=== PATIENT | male | born 1965 | race Caucasian/White ===

== ENCOUNTER 2020-01-20 00:45 | Emergency (ER) | payer MEDICAID ==
[2020-01-20] MEDS ORDERED: HYDROmorphone 1 MG/ML Syringe IM ONE (01:02)
[2020-01-20] MEDS: HYDROmorphone 1 MG/ML Syringe IM ONE ×2 (01:10→01:12)
[2020-01-20] MEDS ORDERED: Sodium Chloride 0.9% 10 ML Syringe FLUSH PRN (01:19)
--- NOTE | 2020-01-20 01:22 | EDM.PDOC ---
ED HPI GENERAL MEDICAL PROBLEM - General Chief Complaint: Upper Extremity Injury/Pain Stated Complaint: FAll, right arm injury, deformity Time Seen by Provider: 01/20/20 00:45 Source of Information: Reports: Patient History Limitations: Reports: No Limitations - History of Present Illness INITIAL COMMENTS - FREE TEXT/NARRATIVE: Patient comes emergency department today with an injury to the right wrist. This patient just prior to arrival was at home when he was walking he stepped in his dogtripped and fell forward on an outstretched flexed right wrist. He has no other injury other than to his right wrist. He does complain of paresthesias to the entire hand all the way up to the wrist on the medial aspect. He is unable to flex the wrist due to pain. He is able to move the fingers appropriately. right wrist Pain Score (Numeric/FACES): 3 - Related Data Allergies Allergy/AdvReac Type Severity Reaction Status Date / Time No Known Allergies Allergy Verified 01/20/20 01:08 Home Meds: Home Meds Hydrocodone/Acetaminophen [Hydrocodon-Acetaminophen 5-325] 1 each PO Q4H PRN #20 tablet 01/20/20 [Rx] Review of Systems - Review of Systems Review Of Systems: Comprehensive ROS is negative, except as noted in HPI. ED EXAM, GENERAL - Physical Exam Exam: See Below Exam Limited By: No Limitations General Appearance: Alert, WD/WN, No Apparent Distress Respiratory/Chest: No Respiratory Distress Cardiovascular: Normal Peripheral Pulses Peripheral Pulses: 2+: Brachial (L), Brachial (R), Radial (L), Radial (R) Extremities: Normal Capillary Refill. No: Normal Inspection (Examination of the right wrist. There is clearly some bony deformity primarily anteriorly displacement and I question some impaction of the wrist due to the shortening of the wrist. There is no break in the skin. He is able to flex and extend all the joints of the finger to include the DIP PIP IP and MCP joints. He does have normal tactile sensation on the hand but he does complain of paresthesias to the hand as well as the lateral aspect of the forearm.) Neurological: Alert, Oriented, No Motor/Sensory Deficits Psychiatric: Normal Affect, Normal Mood Skin Exam: Warm, Dry, Intact, Normal Color ED TRAUMA EXTREMITY PROCEDURES - Joint Reduction Right Wrist Sedation: Conscious Sedation (With propofol by CONSUMER SERVICES ADVISOR) Pre-Procedure NV Status: Abnormal (Paresthesias as documented) Post-Procedure NV Status: Normal Technique: Traction/Counter Traction (As well as the use of finger traps) Number of Attempts: 1 Post-Reduction Imaging: Completely Reduced Joint Reduction Complications: No - Splinting Right Upper Extremity Splint Site: Right wrist Pre-Procedure NV Status: Normal Post-Procedure NV Status: Normal Splint Material: Fiberglass Splint Design: Sugar Tong Applied & Form Fitted By: Provider Provider Post-Splint Application NV Check: NV Status Normal, Good Position Complications: No Progress/Comments: The paresthesia of the hand and arm has resolved after reduction. Course - Vital Signs Last Recorded V/S: Last Vital Signs Temp 99 F 01/20/20 00:45 Pulse 94 01/20/20 00:45 Resp 16 01/20/20 00:45 BP 151/104 H 01/20/20 00:45 Pulse Ox 95 01/20/20 00:45 - Orders/Labs/Meds Orders: Active Orders 24 hr Category Date Time Status DME for Discharge [COMM] Urgent Oth 01/20/20 03:15 Ordered Peripheral IV Insertion Adult [OM.PC] Stat Oth 01/20/20 01:19 Ordered Meds: Medications Discontinued Medications Generic Name Dose Route Start Last Admin Trade Name Freq PRN Reason Stop Dose Admin Hydrocodone Bitart/Acetaminophen 1 packet 01/20/20 02:53 01/20/20 03:20 Take Home: Acetam/Hydrocodon 325-5 Mg, 5 Pack PO 01/20/20 02:54 1 packet ONETIME ONE Administration Hydrocodone Bitart/Acetaminophen 1 tab 01/20/20 03:02 [place] 325-5 Mg PO Q4H PRN Pain Hydromorphone HCl 1 mg 01/20/20 01:02 Dilaudid IM 01/20/20 01:03 ONETIME ONE Hydromorphone HCl 2 mg 01/20/20 01:06 01/20/20 01:10 Dilaudid IM 01/20/20 01:07 Not Given ONETIME ONE Hydromorphone HCl 1 mg 01/20/20 01:19 01/20/20 01:30 Dilaudid IVPUSH 01/20/20 01:20 1 mg ONETIME ONE Administration Propofol Confirm 01/20/20 02:08 Diprivan 50 Ml Administered 01/20/20 02:09 Dose 50 mls @ as directed .ROUTE .STK-MED ONE Sodium Chloride 10 ml 01/20/20 01:19 Saline Flush FLUSH ASDIRECTED PRN Keep Vein Open - Radiology Interpretation Free Text/Narrative:: X-ray of the right wrist per radiology shows a comminuted distal radius intra- articular fracture with posterior displacement of the distal fragments. There is also avulsion and dorsal displacement of the ulnar styloid. Although when I review this x-ray the ulnar styloid is rather rounded and I wonder if this is not somewhat of an old fracture. After deep sedation by anesthesia and reduction x-ray per radiology shows a satisfactory post reduction of the comminuted distal radius fracture. Fracture is in satisfactory alignment. Radiologist did note at this time that the ulnar styloid avulsion may be due to old trauma considering the cortication of the styloid fragment. - Re-Assessments/Exams Free Text/Narrative Re-Assessment/Exam: Initially the patient was given 1 mg of Dilaudid IV push. X-ray of the right wrist shows a comminuted distal radius Colles' type fracture. I did review the xray with DR. Delvalle the hand surgeon assessment nurse practitioner at [facility] with my concerns of the parathesias to the hand. He recommends reduction at this time and post reduction evaluation of the parathesia. I reviewed in length with the patient the Colles' type fracture that he has on his distal radius. With the rather large amount of displacement and impaction of the wrist reduction needs to be completed tonight. I did offer the patient either transfer reduction by myself. He is comfortable with myself reducing that his wrist. He is understanding that this is just a temporary process to get his bones close to realignment but he will still need surgery for this comminuted distal fracture. After the review of risk and benefits to include deep sedation by the CONSUMER SERVICES ADVISOR closed reduction of the right distal comminuted radius fracture written and verbal consent was obtained from the patient. The patient was prepared for deep sedation by the CONSUMER SERVICES ADVISOR to include continuous oximetry continuous end-tidal CO2 regular blood pressure monitor readings. Resuscitation equipment was available at the bedside. Please see the CONSUMER SERVICES ADVISOR notes for the documentation of moderate sedation. After a timeout was completed and verification of the patient and site the patient was placed under sedation by the CONSUMER SERVICES ADVISOR. After good sedation was verified the patient's hand was placed in a fingertrap set with weights at the anatomical position of the right angle of the elbow were placed to help with the reduction. Under satisfactorily identifying that the disimpaction had improved visually as well by palpation I then turned to manual traction and countertraction for reduction of the distal radius head. Which was done with manual manipulation. Postreduction x-rays initially reviewed extemporaneously by myself shows satisfactory realignment of the very displaced distal fragments of the radius. The patient was then placed in a well-padded sugar tong splint to the right hand in the position of anatomical neutral. He had good CMS following the application of the sugar tong splint. Patient awoke from sedation without complication please see the CONSUMER SERVICES ADVISOR's documentation of the sedation. The paresthesias have resolved of the right hand. Otherwise CMS is appropriate to the right hand. Patient does not recall the reduction of the wrist. He tolerated the anesthesia well. He was placed in a bucket sling. Discharge instructions were explained to the patient he is comfortable with this plan. He is understanding that he needs to see hand surgery this week for plan for surgery for this comminuted distal radius fracture. Departure - Departure Time of Disposition: 02:52 Disposition: Home, Self-Care 01 Clinical Impression: Closed fracture of radius Qualifiers: Encounter type: initial encounter Radius location: distal Fracture morphology: Colles' Laterality: right Qualified Code(s): S52.531A - Colles' fracture of right radius, initial encounter for closed fracture - Discharge Information Prescriptions: Hydrocodone/Acetaminophen [Hydrocodon-Acetaminophen 5-325] 1 each PO Q4H PRN #20 tablet PRN Reason: Pain Instructions: Cast or Splint Care, Adult, [id number], Closed Reduction for Wrist or Forearm, Care After, Pain Medicine Instructions, [id number] Referrals: PCP,Unobtain [Primary Care Provider] - Forms: ED Department Discharge Additional Instructions: Tylenol as needed for pain. Use Ibuprofen type medication sparingly. RICE therapy. ICE to the wrist as much as possible over the next 3-5 days. DO not get the splint wet. IN sling at all times. Keep above level of heart when able. If pain not controlled with above. NOrco 1 tablet every 4 hrs with food as needed for pain. Caution sedation. Do not take this medication while you are taking the tylenol as they have some of the same medication in them. RX sent to [facility]. Right away monday morning. Contact [facility] [phone] and make appointment with hand surgeon for this week. MUST BE SEEN THIS WEEK. If you are having problems getting an appointment please contact us in the ED at [phone] for assistance. Return to the ED if new or worsening symptoms. - My Orders Last 24 Hours: My Active Orders 01/20/20 01:19 Peripheral IV Insertion Adult [OM.PC] Stat 01/20/20 03:15 DME for Discharge [COMM] Urgent - Assessment/Plan Last 24 Hours: My Active Orders 01/20/20 01:19 Peripheral IV Insertion Adult [OM.PC] Stat 01/20/20 03:15 DME for Discharge [COMM] Urgent Assessment:: Closed reduction of right distal radius fracture colles fracture Moderate/Deep sedation by CONSUMER SERVICES ADVISOR. Splinting of the colles fracture to the right arm by provider. Plan: Tylenol as needed for pain. Use Ibuprofen type medication sparingly. RICE therapy. ICE to the wrist as much as possible over the next 3-5 days. DO not get the splint wet. IN sling at all times. Keep above level of heart when able. If pain not controlled with above. NOrco 1 tablet every 4 hrs with food as needed for pain. Caution sedation. Do not take this medication while you are taking the tylenol as they have some of the same medication in them. RX sent to [facility]. Right away monday morning. Contact [facility] [phone] and make appointment with hand surgeon for this week. MUST BE SEEN THIS WEEK. If you are having problems getting an appointment please contact us in the ED at [phone] for assistance. Return to the ED if new or worsening symptoms.
[2020-01-20] MEDS: HYDROmorphone 1 MG/ML Syringe IVPUSH ONE (01:30)
[2020-01-20] MEDS ORDERED: propofoL 50 ML ONE (02:08)
[2020-01-20] MEDS ORDERED: Take Home: Acetaminophen/HYDROcodone 325-5 MG, 5 Tab Pack PO ONE (02:53)
[2020-01-20] MEDS ORDERED: Acetaminophen/HYDROcodone 325-5 MG Tab PO PRN (03:02)
--- NOTE | 2020-01-20 07:45 | CR ---
[id number] RAD/RAD Wrist Right 3V Min Exam: RAD Wrist Right 3V Min Indication:FALL, DEFORMITY Comparison: No prior imaging for comparison. Discussion: Acute comminuted fracture of the distal radius. Lateral view demonstrates posterior dislocation at the major fracture site estimated at 12 mm. There is slight impaction along the posterior margin of the fracture secondary to apex volar angulation. No definite intra-articular extension. Fracture at the base of the ulnar styloid demonstrates well-corticated margins is consistent with a chronic abdomen normality. Impression: Acute comminuted distal radius fracture. Basil Scherer MD 01/20/20 0744 Thank you for allowing us to participate in the care of your patient.
--- NOTE | 2020-01-20 09:27 | CR ---
[id number] RAD/RAD Wrist Right 2V EXAM: RAD Wrist Right 2V INDICATION: POST REDUCTION COMPARISON: January 20, 2020. DISCUSSION: There is improved alignment of an acute impacted and displaced distal radius fracture. An ulnar styloid base fracture is unchanged in alignment. IMPRESSION: 1. Improved alignment of the distal radius fracture post reduction. Mild persistent angulation, displacement and impaction. David Blackman MD 01/20/20 0926 Thank you for allowing us to participate in the care of your patient.
== END 2020-01-20 03:30 | disposition home or self-care (01) ==
LOC: VM.ED 00:45
DX: S52.531A Colles' fracture of right radius, initial encounter for closed fracture (principal); S52.611A Displaced fracture of right ulna styloid process, initial encounter for closed fracture; W01.0XXA Fall on same level from slipping, tripping and stumbling without subsequent striking against object, initial encounter; Y93.01 Activity, walking, marching and hiking; Y92.009 Unspecified place in unspecified non-institutional (private) residence as the place of occurrence of the external cause
CPT/HCPCS: 25605; 73100; 73110; 96374; 99283; A9270; J1170; 01820; 29125; 99140

== ENCOUNTER 2022-04-28 15:16 | Emergency (ER) | payer MEDICAID ==
[2022-04-28] MEDS ORDERED: Ibuprofen 200 MG Tab PO PRN (15:45)
== END 2022-04-28 17:09 | disposition home or self-care (01) ==
LOC: VM.ED 15:16
DX: J02.9 Acute pharyngitis, unspecified (principal)
CPT/HCPCS: 87651; 99283; A9270

== ENCOUNTER 2022-08-13 16:37 | Observation (INO) | payer MEDICAID ==
[2022-08-13] MEDS ORDERED: levETIRAcetam in NaCl (iso-os) 100 ML IV ONE (16:59)
[2022-08-13] MEDS ORDERED: Labetalol 20 MG/4 ML Syringe IVPUSH ONE ×2 (17:12→17:53)
[2022-08-13 17:24] LABS: CHLORIDE,CL 104 mmol/L (98-107); SODIUM,NA 144 mmol/L (136-145)
[2022-08-13 17:25] LABS: ANION GAP 18.3 mmol/L (5-15); ESTIMATED GFR 64 mL/min (>=60)
[2022-08-13 17:26] LABS: PTT,PARTIAL THROMBOPLSTIN TIME 21.6 SEC (20.5-30.9)
[2022-08-13] MEDS ORDERED: Morphine 2 MG/ML SYRINGE IVPUSH ONE (18:37)
[2022-08-13] MEDS ORDERED: Ondansetron 4 MG Tab.DIS PO PRN (18:52)
[2022-08-13] MEDS ORDERED: Acetaminophen 325 MG Tab PO PRN (18:52)
[2022-08-13] MEDS ORDERED: Ondansetron 4 MG/2 ML SDV IV PRN (18:52)
[2022-08-13] MEDS ORDERED: Sodium Chloride 0.9% 10 ML Syringe FLUSH PRN (18:52)
[2022-08-13] MEDS: Losartan 50 MG Tab PO SCH (19:27)
[2022-08-14] MEDS: Losartan 50 MG Tab PO SCH (08:18)
[2022-08-14 08:20] LABS: ANION GAP 12.7 mmol/L (5-15)
[2022-08-14] MEDS ORDERED: levETIRAcetam 500 MG Tab PO SCH (09:00)
[2022-08-14] MEDS ORDERED: levETIRAcetam 500 MG Tab PO ONE (11:04)
== END 2022-08-14 11:17 | disposition home or self-care (01) ==
LOC: VM.ED 16:37 → VM.MS 18:23
PROVIDERS: ADMIT Physician Assistant Medical; ATTEND Physician Assistant Medical
DX: I16.0 Hypertensive urgency (principal); R56.9 Unspecified convulsions; M19.90 Unspecified osteoarthritis, unspecified site; R62.50 Unspecified lack of expected normal physiological development in childhood; R53.1 Weakness; Z87.891 Personal history of nicotine dependence
CPT/HCPCS: 36415; 70450; 80048; 80053; 81001; 82550; 84484; 85025; 85610; 85730; 86140; 93005; 96374; 96375; 96376; 99285-25; A9270-GY; G0378; J1953; J2270; J3490

== ENCOUNTER 2024-04-18 18:46 | Emergency (ER) | payer MEDICAID ==
[2024-04-18 19:38] VITALS: PULSE 84
[2024-04-18 20:03] VITALS: BP 144/102
[2024-04-18] MEDS: Lisinopril 5 MG Tab PO ONE (20:03)
== END 2024-04-18 20:05 ==
LOC: VM.ED 18:46
DX: R09.89 Other specified symptoms and signs involving the circulatory and respiratory systems (principal); I10 Essential (primary) hypertension
CPT/HCPCS: 71046; 99284; A9270